=== PATIENT | female | born 1985 | race Caucasian/White ===

== ENCOUNTER 2018-02-26 00:50 | Outpatient (CLI) | payer OTHER ==
[~2018-02-26] VITALS: Ht 154.9 cm; Wt 80.0 kg
[~2018-02-26 00:50] MED LIST: PEDICHW50 PO; PRLSR20 PO
[2018-02-26 01:43] VITALS: Ht 154.9 cm; Wt 80.0 kg
== END 2018-02-26 01:43 | disposition home or self-care (01) ==
LOC: C.LD 00:50 → C.OPB 00:50
PROVIDERS: ATTEND Obstetrics & Gynecology
DX: O36.8190 Decreased fetal movements, unspecified trimester, not applicable or unspecified (principal); Z3A.00 Weeks of gestation of pregnancy not specified

== ENCOUNTER 2020-07-06 07:44 | Inpatient (IN) ==
--- OUTSIDE RECORDS SUMMARY | 2020-07-06 07:47 | External Medical Summary | Continuity of Care Document ---
:1985 Author Name Marlene Back Address Unavailable Unavailable , Care Team Providers Name Role Phone Sachin Patrick [email or web address] [place] Unavailable Unavailable Unavailable Unavailable Unavailable Problems Encounter for routine gynecological examination (V72.31) (Z0 1.419) Cholelithiasis (574.20) (K80.20) Elevated transaminase level (790.4) (R74.0) Sinus tachycardia (427.89) (R00.0) Palpitations (785.1) (R00.2) Allergies and Adverse Reactions No Known Drug Allergies (Allergy) Medications Flintstones Plus Iron Oral Tablet Chewable; CHEW AND SWALLOW 1 TABLET DAILY. Refills: 0 Procedures History of Oral Surgery Tooth Extraction Status: Completed History of Laparoscopic Cholecystectomy With Cholangiography Status: Completed History of ERCP With Endoscopic Sphincterotomy Status: Completed Immunizations Tdap (Adacel) On: 29-Oct-2014 11:47 Lot #: [id number], [employer] Family History Grandmother Family history of Thyroid Disorder (V18.19) Status: Active Father Family history of Diabetes Mellitus (V18.0) Status: Active Family history of Hypertension (V17.49) Status: Active Grandmother Family history of Diabetes Mellitus (V18.0) Status: Active Mother Family history of Hypertension (V17.49) Status: Active Unknown Family Member Family history of Hypertension (V17.49) Status: Active Comments: Family History Social History - Smoking Status Never smoked tobacco Plan of Treatment Planned Observations Planned Goals not documented Results No Known Results Results not documented
[2020-07-06] MEDS ORDERED: OXYTOCIN 30 UNITS/500 ML BAG IV PRN ×2 (08:46→21:45)
--- NOTE | 2020-07-06 08:53 | History & Physical Report ---
Date of Service July 06, 2020 Assessment & Plan (1) Elective induction of labor planned: 35 yo at 40.3 wks with GDMA1, diet controlled VSS Afebrile FHR reassuring GBS and COVID negative Plan to admit, monitor, cervical ripening, discussed PO Cytotec or Vaginal insert/ Cervidil, patient is okay with Cervidil All questions were answered (2) Gestational diabetes mellitus (GDM): History of Present Illness Primary Care Provider: NO PCP Patient is a 35 yo at 40.3 wks with GDMA1 admitted for IOL No complaints No ctxs/ LOF/VB +FM's GBS negative Covid negative Allergies Allergy/AdvReac Type Severity Reaction Status Date / Time No Known Allergies Allergy Verified 07/06/20 07:55 Home Medications Home Medications Medication Instructions Recorded Confirmed Type OMEPRAZOLE (PRILOSEC) 20 mg PO DAILY #0 cap 11/16/14 07/06/20 History vit-iron fum-folic ac 1 tab PO DAILY 07/06/20 07/06/20 History [ Vitamin] Patient History Medical History Eczema Normal vaginal delivery Surgical History History of ERCP Hx of cholecystectomy Social History Smoking Status: Never smoker Hx Alcohol Use: No Hx Substance Use: No Preferred Language: Uzbek Communication Ability: Effective 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 Beliefs That Will Affect Care: None marital status: Single Current Living Situation: Family and Significant Other Other Information That Helps Us Care for You: No Feels Safe at Home: Yes Safety Concerns: Feels Safe At This Time OB History 2 FT 's in 2015 and 2018 [employer] History No h/o STD's, no HSV Review of Systems All systems reviewed & are unremarkable except as noted in HPI & below Physical Exam Constitutional: WD/WN, vitals as above well developed and well nourished Confortable, NAD Genitourinary: normal external appearance OB Exam Abdomen: + vertex Manual OB Exam: + cervical dilation 1 cm, + cervical effacement 30% and + station high OB Exam Monitor Tracing: + external uterine monitor used and + category I Results & Data Vital Signs (Past 12 Hours) Vital Signs Temp Pulse Resp BP 07/06/20 08:07 36.7 C 18 07/06/20 07:54 92 H 124/66
[2020-07-06] MEDS ORDERED: DINOPROSTONE 10 MG INSERT PV ONE (09:00)
[2020-07-06 09:16] LABS: Hematocrit (blood only) 31.4 % (37-47); Hemoglobin 10.2 g/dL (12.0-16.0); Mean Corpuscular Hemoglobin 24.8 pg (25-34); Mean Corpuscular Volume 76.4 fL (80-100); Mean Platelet Volume 11.1 fL (7.4-10.4); Platelet Count 203 K/uL (130-400); RDW Coefficient of Variation 14.9 % (11.5-14.5); RDW Standard Deviation 42.1 fL (36.4-46.3); Red Blood Count 4.11 M/uL (4.2-5.4); White Blood Count 6.45 K/uL (4.8-10.8)
[2020-07-06 09:18] LABS: Mean Corpuscular Hgb Conc 32.5 g/dL (32-36)
[2020-07-06 09:32] LABS: Albumin Level 2.3 gm/dl (3.4-5.0); Calcium 8.7 mg/dl (8.5-10.1); Creatinine Clr Calc Pharmacy 136.3 ml/min; Est GFR (African American) 140.2; Potassium 3.6 mmol/L (3.5-5.1)
[2020-07-06 09:37] LABS: Albumin Globulin Ratio 0.6 (0.9-2); Bilirubin,Total 0.2 mg/dl (0.2-1); Globulin 3.6 gm/dl (2.5-4.0); Total Protein 5.9 gm/dl (6.4-8.2)
--- NOTE | 2020-07-06 20:51 | Obstetrical Progress Note ---
Date of Service July 06, 2020 Assessment & Plan Admission and Anticipated Discharge Date Admission Date: July 06, 2020 Subjective Patient is reevaluated She has been feeling mild and irregular ctxs Pain is 4/10 No LOF/VB +FM She is hungry and likes to eat FHR had been categ I [place]: ctxs q 2-5 minutes VE: 2/ 30% softer, -3, posterior, Cervidil was removed Plan to feed her and monitor and then continue with cervical ripening/ IOL Results & Data ([facility]) Vital Signs (Past 12 Hours) Vital Signs Temp Pulse Resp BP 07/06/20 19:05 36.5 C 60 18 126/71 07/06/20 16:02 59 L 110/63 07/06/20 16:01 36.4 C L 18 07/06/20 12:05 36.6 C 18 07/06/20 12:04 65 110/59 L
[2020-07-06] MEDS ORDERED: BUTORPHANOL TARTRATE 1 MG/ML VIAL IV PRN (23:45)
[2020-07-07] MEDS: miSOPROStoL 50 MCG TAB PO SCH ×4 (00:12→12:06)
[2020-07-07] MEDS: LACTATED RINGER'S 1,000 ML IV PRN ×3 (03:30→09:27)
[2020-07-07] MEDS ORDERED: OXYTOCIN 30 UNITS/500 ML BAG IV PRN ×2 (07:15→11:42)
[2020-07-07] MEDS ORDERED: BUPIVACAINE 0.25% 30 ML VIAL ONE (07:55)
[2020-07-07] MEDS ORDERED: ePHEDrine sulfate 50 MG/ML AMP ONE (07:55)
[2020-07-07] MEDS ORDERED: fentaNYL 2MCG/ML ROPIV 1.25MG/ML 100 ML BAG EPI ONE (07:55)
[2020-07-07] MEDS ORDERED: fentaNYL citrate 100 MCG/2 ML VIAL ONE (07:55)
[2020-07-07] MEDS ORDERED: NALOXONE HCL 1 MG in SODIUM CHLORIDE 0.9% 1000ML 1,000 ML IV PRN (08:15)
[2020-07-07] MEDS ORDERED: ONDANSETRON INJ 2 MG/ML 2 ML VIAL IV PRN (08:15)
[2020-07-07] MEDS ORDERED: fentaNYL 2MCG/ML ROPIV 1.25MG/ML 100 ML BAG EPI PRN (08:15)
[2020-07-07] MEDS ORDERED: NALOXONE HCL 0.4 MG/1 ML VIAL/CARP IV PRN (08:15)
[2020-07-07] MEDS ORDERED: DiphenhydrAMINE HCL 50 MG/ML VIAL IV PRN (08:15)
[2020-07-07] MEDS ORDERED: ePHEDrine sulfate 50 MG/ML AMP IV PRN (08:15)
--- NOTE | 2020-07-07 08:17 | Anesthesiology Consultation ---
Date of Service July 07, 2020 Covid 19 negative on 06/24/20. Assessment & Plan Chart Review Chart Review: Patient NOT seen in Pre Admission Testing and Acceptable Risk for Labor Epidural Consults Requested none ASA ASA2 Proposed Anesthesia Anesthesia Type: Labor Epidural and CSE Risk / Benefits Reviewed With: PT / POA / Parent / Guardian, Accepts Plan and Informed Consent Obtained History Height/Weight Height: 5 ft 1 in Weight: 83.461 kg Allergies Allergy/AdvReac Type Severity Reaction Status Date / Time No Known Allergies Allergy Verified 07/06/20 07:55 Medications Home Medications Medication Instructions Recorded Confirmed Last Taken OMEPRAZOLE (PRILOSEC) 20 mg PO DAILY #0 cap 11/16/14 07/06/20 07/06/20 vit-iron fum-folic ac 1 tab PO DAILY 07/06/20 07/06/20 07/05/20 [ Vitamin] Active Medications Generic Name Dose Route Start Last Admin Trade Name Freq PRN Reason Stop Dose Admin Butorphanol Tartrate 1 mg 07/06/20 23:45 07/07/20 03:31 Butorphanol Tartrate 1 Mg/Ml Vial IV 08/05/20 23:44 1 mg Q3HWA PRN Administration Pain Lactated Ringer's 1,000 mls @ 150 mls/hr 07/06/20 08:46 07/07/20 08:01 Lr IV 07/08/20 08:45 999 mls/hr .Q6H40M PRN Infusion L&D Protocol Protocol Oxytocin 30 units in 500 mls @ 2 mls/hr 07/06/20 21:45 07/07/20 07:30 Pitocin IV 07/08/20 21:44 0.12 units/hr .Q24H PRN 2 mls/hr Labor Induction/Augmentation Administration Protocol 0.12 UNITS/HR Misoprostol 50 mcg 07/07/20 00:00 07/07/20 05:35 Cytotec PO 08/06/20 00:00 Not Given Q4 CHRIS NPO Date Last Intake of Fluids: 07/07/20 Time Last Intake of Fluids: 07:30 Date Last Intake of Solids: 07/06/20 Time Last Intake of Solids: 19:00 Past Medical History Medical History Eczema Gestational diabetes mellitus (GDM) Normal vaginal delivery Exercise / Class Metabolic Activity II 4-5 Yardwork/Stairs/Walk up hill Past Surgical History Surgical History History of ERCP Hx of cholecystectomy Past Anesthesia History No Hx of Anesthesia Complications and No Family Hx of Anesthesia Complications History of PONV No Hx of PONV and No Hx of Motion Sickness Social History Smoking Status: Never smoker Hx Alcohol Use: No Hx Substance Use: No Review of Systems no chest pain or sob Physical Exam Vital Signs Last Vital Signs Temp 36.6 C 07/07/20 07:03 Pulse 78 07/07/20 08:13 Resp 20 07/07/20 07:03 BP 159/92 H 07/07/20 07:35 Pulse Ox 100 07/07/20 08:13 ENMT Mouth: no TMJ abnormality Thyromental Distance: > or= 3.5 Finger Breadths Mallampati Class: II Neck normal visual inspection Respiratory normal respiratory effort Auscultation: lungs clear to auscultation bilaterally Cardiovascular Rate/Rhythm: regular rate and regular rhythm Musculoskeletal Spine: normal cervical ROM Neurologic moves all extremities Psychiatric Orientation: alert and oriented x 3 Testing Laboratory Results 07/06/20 09:01 07/06/20 09:01
[2020-07-07] MEDS ORDERED: OXYCODONE/ACETAMINOPHEN 5mg/325mg TAB PO PRN (11:42)
[2020-07-07] MEDS ORDERED: bisacodyL 10 MG SUPP PR PRN (11:42)
[2020-07-07] MEDS ORDERED: ACETAMINOPHEN 325 MG TAB PO PRN (11:42)
[2020-07-07] MEDS ORDERED: ACETAMINOPHEN W/CODEINE #3 1 TAB PO PRN (11:42)
[2020-07-07] MEDS ORDERED: DIPHTHERIA/TETANUS/PERTUSSIS 0.5 ML SYR/VIAL IM ONE (11:42)
[2020-07-07] MEDS ORDERED: HYDROCORTISONE ACETATE 25 MG SUPP PR PRN (11:42)
[2020-07-07] MEDS ORDERED: SUPERCREAM 0.870% 15 GM JAR EXT PRN (11:42)
[2020-07-07] MEDS ORDERED: BENZOCAINE 20% AER SPR 82.5 GM CAN EXT PRN (11:42)
--- NOTE | 2020-07-07 12:08 | Anesthesia Procedure Note ---
Date of Service July 07, 2020 Anesthesia Post Epidural Note Vital Signs Vital Signs: Temp Pulse Resp BP Pulse Ox 36.7 C 75 20 116/59 L 92 07/07/20 11:00 07/07/20 11:58 07/07/20 11:00 07/07/20 11:58 07/07/20 11:26 Notes Mental Status: alert / awake / arousable and participated in evaluation Nausea / Vomiting: adequately controlled Pain: adequately controlled Airway Patency, RR, SpO2: stable & adequate BP & HR: stable & adequate Hydration State: stable & adequate Neuraxial Anesthesia: was administered and sensory block is resolving Anesthetic Complications: no major complications apparent and Pt Satisfied with anesthetic care Epidural: Removed without complications and With tip intact
--- NOTE | 2020-07-07 13:04 | Operative Report (OR) ---
DATE OF OPERATION: 07/07/2020 Mrs. Jones is a 4, para 3, blood type is O positive, group B strep negative, due date was 07/02/2020, was brought in for induction of labor due to post-dates. Was given Cervidil tape and then eventually was switched to IV Pitocin. Soon after she was started on IV Pitocin, she requested and received epidural from which she got good pain relief. Following this, she progressed rapidly, went to full dilatation. Membranes ruptured spontaneously. After the cervix was fully dilated, she pushed out a live female infant via direct occiput anterior position over an intact perineum. was suctioned through the mouth and the nose. Body was delivered without difficulty. Cord was allowed to pulse for a minute, then clamped and cut by the father. Cord blood was taken. With IV Pitocin running, the placenta was removed intact. Inspection of the perineum revealed a small superficial first degree laceration. This was repaired with a running 3-0 chromic. After delivery of the placenta, uterus contracted nicely. Hemostasis was excellent. Estimated blood loss was only 50 mL. Apgars were deferred to the nurses. I attest to the content of the Intraoperative Record and any orders documented therein. Any exception s are noted below.
[2020-07-07] MEDS: IBUPROFEN 600 MG TAB PO PRN (19:42)
[2020-07-07] MEDS: DOCUSATE SODIUM 100 MG CAP PO SCH (21:20)
[2020-07-08] MEDS: IBUPROFEN 600 MG TAB PO PRN ×3 (01:56→12:48)
[2020-07-08 05:40] LABS: Hematocrit (blood only) 30.1 % (37-47); Hemoglobin 9.9 g/dL (12.0-16.0); Mean Corpuscular Hemoglobin 25.2 pg (25-34); Mean Corpuscular Hgb Conc 32.9 g/dL (32-36); Mean Corpuscular Volume 76.6 fL (80-100); Mean Platelet Volume 11.6 fL (7.4-10.4); Platelet Count 170 K/uL (130-400); RDW Coefficient of Variation 15.1 % (11.5-14.5); Red Blood Count 3.93 M/uL (4.2-5.4); White Blood Count 7.94 K/uL (4.8-10.8)
[2020-07-08] MEDS ORDERED: PRENATAL VITAMIN 1 TAB PO SCH (08:00)
[2020-07-08] MEDS: DOCUSATE SODIUM 100 MG CAP PO SCH (08:26)
[2020-07-08] MEDS ORDERED: bisacodyL 5 MG TABEC PO SCH (20:00)
== END 2020-07-08 18:50 | disposition home or self-care (01) | DRG 807 ==
LOC: 4S1 07:44 → 4S2 07-07 15:46

== ENCOUNTER 2022-04-24 16:57 | Inpatient (IN) ==
[2022-04-24 18:53] LABS: Basophils # (auto) 0.02 K/uL (0-0.2); Basophils % (auto) 0.3 %; Eosinophils # (auto) 0.07 K/uL (0-0.5); Hematocrit (blood only) 30.9 % (37-47); Hemoglobin 9.7 g/dL (12.0-16.0); Immature Granulocytes # (auto) 0.02 K/uL (0.00-0.02); Immature Granulocytes % (auto) 0.3 %; Lymphocytes # (auto) 1.79 K/uL (1.2-3.4); Lymphocytes % (auto) 25.3 %; Mean Corpuscular Hemoglobin 23.3 pg (25-34); Mean Corpuscular Hgb Conc 31.4 g/dL (32-36); Mean Corpuscular Volume 74.3 fL (80-100); Mean Platelet Volume 12.2 fL (7.4-10.4); Monocytes # (auto) 0.56 K/uL (0.11-0.59); Monocytes % (auto) 7.9 %; Neutrophils # (auto) 4.61 K/uL (1.4-6.5); Neutrophils % (auto) 65.2 %; Platelet Count 211 K/uL (130-400); RDW Coefficient of Variation 16.1 % (11.5-14.5); RDW Standard Deviation 44.1 fL (36.4-46.3); Red Blood Count 4.16 M/uL (4.2-5.4); White Blood Count 7.07 K/uL (4.8-10.8)
[2022-04-24 19:14] LABS: Albumin Globulin Ratio 1.2 (0.9-2); Albumin Level 3.2 gm/dl (3.4-5.0); BUN Creatinine Ratio 27.1 (10-20); Bilirubin,Total 0.3 mg/dl (0.2-1.0); Calcium 8.6 mg/dl (8.5-10.1); Creatinine Clr Calc Pharmacy 167.6 ml/min; Est GFR (African American) 146.3 ml/min; Est GFR (Non-African American) 126.2 ml/min; Globulin 2.7 gm/dl (2.5-4.0); Potassium 3.4 mmol/L (3.5-5.1); Total Protein 5.9 gm/dl (6.0-8.3)
[2022-04-24 19:35] LABS: Appearance Urine Clear (Clear); Bacteria Urine Automated Negative (Negative); Bilirubin Urine Negative (Negative); Blood Urine Trace (Negative); Color Urine Yellow; Glucose Urine UA Negative (Negative); Ketones Urine Negative (Negative); Leukocyte Esterase Urine Negative (Negative); Nitrite Urine Negative (Negative); Protein Urine Negative (Negative); RBC Urine Automated 0-4 /hpf (0-4); Specific Gravity Urine 1.014 (1.000-1.030); Urobilinogen Urine Negative (Negative)
[2022-04-24 19:47] LABS: Creatinine Urine Random 69.9 mg/dl; Protein Creatinine Ratio Urine 0.2 (0-0.2); Total Protein Urine Random 12.4 mg/dl (0-11.9)
[2022-04-24] MEDS: ACETAMINOPHEN 325 MG TAB PO PRN (19:52)
[2022-04-24] MEDS ORDERED: OXYTOCIN 30 UNITS/500 ML BAG IV PRN ×3 (20:20→23:51)
--- NOTE | 2022-04-24 20:30 | History & Physical Report ---
Date of Service April 24, 2022 Assessment & Plan (1) Irregular uterine contractions: (2) Gestational [-induced] hypertension without significant proteinuria, complicating childbirth: Plan: 57-year-old -0-1-3 at 40 weeks and 2 days of gestation presenting to labor and delivery with contractions since yesterday, on latent phase of labor, to have elevated blood pressures with no proteinuria, meeting criteria for gestational hypertension, Asymptomatic with elevated blood pressures, no severe features, heart rate reassuring, Prolonged latent phase with cervical change and irregular contractions, GBS negative, Labs within normal limits, Plan to admit, augment with Pitocin per protocol, AROM for delivery continuously monitor (3) Obesity affecting in third trimester, antepartum: History of Present Illness Chief Complaint: Contractions Primary Care Provider: NO PCP Patient is a 37-year-old -0-1-3 at 40 weeks and 2 days of gestation who has been contractions since yesterday. She presented to labor and delivery yesterday afternoon and her cervix was unchanged at 2 cm dilation she was sent home. Her contractions became sporadic until 1 PM this afternoon when they become more painful and regular. She has been feeling them every 6 to 8 minutes. No leakage of fluid or vaginal bleeding. She reports good movements. Her has been complicated by, 1. Obesity during , 2. History of preeclampsia during first , 3. History of gestational diabetes during second , declined screening this time. During observation here her blood pressures were found to be elevated over 140/90 multiple times, her urine had no protein and her blood work including platelets, creatinine and liver enzymes were within normal limits. Her cervix changed to 4 cm dilatation 60%, -2 with bulging back. Because of those findings decision was made to admit her and augment with oxytocin and AROM for delivery. Patient is happy to hear that and agrees with plan. GBS is negative, She never had COVID, never had the vaccine either. Denies any symptoms of COVID, denies recent exposure. Allergies Allergy/AdvReac Type Severity Reaction Status Date / Time No Known Allergies Allergy Verified 04/24/22 17:15 Home Medications Medication Instructions Recorded Confirmed Type vitamins-iron fumarate 27 1 tab PO DAILY 07/06/20 04/24/22 History mg iron-folic acid 0.8 mg tablet ( Vitamin) omeprazole magnesium 20 mg 20 mg PO DAILY 04/24/22 04/24/22 History tablet,delayed release (Prilosec OTC) Patient History Medical History Eczema Gestational diabetes mellitus (GDM) last was diagnosed, with this just monitoring BSG, refused glucose testing. 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 Other Information That Helps Us Care for You: No Feels Safe at Home: Yes Assistive Devices: None OB History 3 spontaneous vaginal deliveries, 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 No history of STDs, no history of chlamydia, gonorrhea, herpes Review of Systems as per Subjective / HPI + headache(s) (With about half an hour ago, mild, no change in her vision.) Physical Exam Constitutional: well developed, well nourished and + obese Mild distress with contractions only, comfortable in between Gastrointestinal (Abdomen): normal bowel sounds, soft, nontender, no hepatosplenomegaly (Gravid) Genitourinary: normal external appearance OB Exam Abdomen: + vertex Manual OB Exam: + cervical dilation 4 cm, + cervical effacement 60% and + station -2 OB Exam Monitor Tracing: + external uterine monitor used and + category I Results & Data ([facility]) Vital Signs (Past 12 Hours) Vital Signs Temp Pulse Resp BP 04/24/22 20:10 64 143/82 H 04/24/22 19:55 60 155/78 H 04/24/22 19:41 61 155/76 H 04/24/22 19:27 36.7 C 18 04/24/22 19:26 59 L 159/70 H 04/24/22 19:10 67 150/94 H 04/24/22 18:54 60 150/91 H 04/24/22 18:39 76 145/90 H 04/24/22 18:24 68 145/87 H 04/24/22 18:09 82 142/81 H 04/24/22 17:54 72 142/81 H 04/24/22 17:38 78 155/86 H 04/24/22 17:37 83 164/98 H 04/24/22 17:09 36.9 C 80 18 140/81 04/24/22 17:08 36.9 C 80 18 140/81 Laboratory Results Lab Results 04/24/22 04/24/22 04/24/22 Range/Units 18:21 18:21 18:21 WBC 7.07 (4.8-10.8) K/uL RBC 4.16 L (4.2-5.4) M/uL Hgb 9.7 L (12.0-16.0) g/dL Hct 30.9 L (37-47) % MCV 74.3 L (80-100) fL MCH 23.3 L (25-34) pg MCHC 31.4 L (32-36) g/dL RDW Std Deviation 44.1 (36.4-46.3) fL RDW Coeff of Jeremy 16.1 H (11.5-14.5) % Plt Count 211 (130-400) K/uL MPV 12.2 H (7.4-10.4) fL Immature Gran % (Auto) 0.3 % Neut % (Auto) 65.2 % Lymph % (Auto) 25.3 % Hendricks % (Auto) 7.9 % Eos % (Auto) 1.0 % Baso % (Auto) 0.3 % Neut # (Auto) 4.61 (1.4-6.5) K/uL Lymph # (Auto) 1.79 (1.2-3.4) K/uL Hendricks # (Auto) 0.56 (0.11-0.59) K/uL Eos # (Auto) 0.07 (0-0.5) K/uL Baso # (Auto) 0.02 (0-0.2) K/uL Immature Gran # (Auto) 0.02 (0.00-0.02) K/uL Sodium 135 L (136-145) mmol/L Potassium 3.4 L (3.5-5.1) mmol/L Chloride 108 H (98-107) mmol/L Carbon Dioxide 20 L (21-32) mmol/L Anion Gap 7 (3-11) BUN 13 (6-23) mg/dl Creatinine 0.48 L (0.6-1.2) mg/dl Est Cr Clr Drug Dosing 167.6 ml/min Est GFR ( Amer) 146.3 ml/min Est GFR (Non-Af Amer) 126.2 ml/min BUN/Creatinine Ratio 27.1 H (10-20) Glucose 89 (70-99(Fasting)) mg/dl Calcium 8.6 (8.5-10.1) mg/dl Total Bilirubin 0.3 (0.2-1.0) mg/dl AST 9 L (13-39) U/L ALT 6 L (7-52) U/L Alkaline Phosphatase 95 (34-104) U/L Lactate Dehydrogenase 109 (86-244) U/L Total Protein 5.9 L (6.0-8.3) gm/dl Albumin 3.2 L (3.4-5.0) gm/dl Globulin 2.7 (2.5-4.0) gm/dl Albumin/Globulin Ratio 1.2 (0.9-2) Urine Color Urine Appearance (Clear) Urine pH (4.5-7.5) Ur Specific [place] (1.000-1.030) Urine Protein (Negative) Urine Glucose (UA) (Negative) Urine Ketones (Negative) Urine Blood (Negative) Urine Nitrite (Negative) Urine Bilirubin (Negative) Urine Urobilinogen (Negative) Ur Leukocyte Esterase (Negative) Urine WBC (Auto) (0-5) /hpf Urine RBC (Auto) (0-4) /hpf U Hyaline Cast (Auto) (0-5) /lpf U Epithel Cells (Auto) (0-5) /lpf Urine Bacteria (Auto) (Negative) Ur Random Creatinine mg/dl U Random Total Protein (0-11.9) mg/dl Protein/Creatinin Ratio (0-0.2) 04/24/22 04/24/22 Range/Units 19:26 19:29 WBC (4.8-10.8) K/uL RBC (4.2-5.4) M/uL Hgb (12.0-16.0) g/dL Hct (37-47) % MCV (80-100) fL MCH (25-34) pg MCHC (32-36) g/dL RDW Std Deviation (36.4-46.3) fL RDW Coeff of Jeremy (11.5-14.5) % Plt Count (130-400) K/uL MPV (7.4-10.4) fL Immature Gran % (Auto) % Neut % (Auto) % Lymph % (Auto) % Hendricks % (Auto) % Eos % (Auto) % Baso % (Auto) % Neut # (Auto) (1.4-6.5) K/uL Lymph # (Auto) (1.2-3.4) K/uL Hendricks # (Auto) (0.11-0.59) K/uL Eos # (Auto) (0-0.5) K/uL Baso # (Auto) (0-0.2) K/uL Immature Gran # (Auto) (0.00-0.02) K/uL Sodium (136-145) mmol/L Potassium (3.5-5.1) mmol/L Chloride (98-107) mmol/L Carbon Dioxide (21-32) mmol/L Anion Gap (3-11) BUN (6-23) mg/dl Creatinine (0.6-1.2) mg/dl Est Cr Clr Drug Dosing ml/min Est GFR ( Amer) ml/min Est GFR (Non-Af Amer) ml/min BUN/Creatinine Ratio (10-20) Glucose (70-99(Fasting)) mg/dl Calcium (8.5-10.1) mg/dl Total Bilirubin (0.2-1.0) mg/dl AST (13-39) U/L ALT (7-52) U/L Alkaline Phosphatase (34-104) U/L Lactate Dehydrogenase (86-244) U/L Total Protein (6.0-8.3) gm/dl Albumin (3.4-5.0) gm/dl Globulin (2.5-4.0) gm/dl Albumin/Globulin Ratio (0.9-2) Urine Color Yellow Urine Appearance Clear (Clear) Urine pH 6.0 (4.5-7.5) Ur Specific [place] 1.014 (1.000-1.030) Urine Protein Negative (Negative) Urine Glucose (UA) Negative (Negative) Urine Ketones Negative (Negative) Urine Blood Trace H (Negative) Urine Nitrite Negative (Negative) Urine Bilirubin Negative (Negative) Urine Urobilinogen Negative (Negative) Ur Leukocyte Esterase Negative (Negative) Urine WBC (Auto) 1-5 (0-5) /hpf Urine RBC (Auto) 0-4 (0-4) /hpf U Hyaline Cast (Auto) 1-5 (0-5) /lpf U Epithel Cells (Auto) 10-20 H (0-5) /lpf Urine Bacteria (Auto) Negative (Negative) Ur Random Creatinine 69.9 mg/dl U Random Total Protein 12.4 H (0-11.9) mg/dl Protein/Creatinin Ratio 0.2 (0-0.2)
[2022-04-24] MEDS: LACTATED RINGER'S 1,000 ML IV PRN ×2 (21:20→22:29)
[2022-04-24] MEDS ORDERED: ePHEDrine sulfate 50 MG/ML AMP ONE (21:40)
[2022-04-24] MEDS ORDERED: BUPIVACAINE 0.25% 30 ML VIAL ONE (21:41)
[2022-04-24] MEDS ORDERED: SODIUM CHLORIDE 0.9% INJ 10 ML VIAL ONE (21:41)
[2022-04-24] MEDS ORDERED: fentaNYL 2MCG/ML ROPIVACAINE 1.25MG/ML 100 ML BAG EPI ONE (21:41)
[2022-04-24] MEDS ORDERED: fentaNYL citrate 100 MCG/2 ML VIAL ONE (21:41)
[2022-04-24] MEDS ORDERED: NALOXONE HCL 0.4 MG/1 ML VIAL/CARP IV PRN (22:42)
[2022-04-24] MEDS ORDERED: ONDANSETRON INJ 2 MG/ML 2 ML VIAL IV PRN (22:42)
[2022-04-24] MEDS ORDERED: ePHEDrine sulfate 50 MG/ML AMP IV PRN (22:42)
[2022-04-24] MEDS ORDERED: NALOXONE HCL 1 MG in SODIUM CHLORIDE 0.9% 1000ML 1,000 ML IV PRN (22:42)
[2022-04-24] MEDS ORDERED: PROMETHAZINE HCL 6.25 MG in SODIUM CHLORIDE 0.9% 50 ML IV PRN (22:42)
[2022-04-24] MEDS ORDERED: NALBUPHINE HCL INJ 10 MG/ML AMP IV PRN (22:42)
[2022-04-24] MEDS ORDERED: fentaNYL 2MCG/ML ROPIVACAINE 1.25MG/ML 100 ML BAG EPI PRN (22:42)
[2022-04-24] MEDS ORDERED: diphenhydrAMINE 50 MG/ML VIAL IV PRN (22:42)
--- NOTE | 2022-04-24 22:42 | Anesthesiology Consultation ---
Date of Service April 24, 2022 Assessment & Plan Chart Review Chart Review: Patient NOT seen in Pre Admission Testing and Acceptable Risk for Labor Epidural Consults Requested none ASA ASA2 Proposed Anesthesia Anesthesia Type: Labor Epidural Risk / Benefits Reviewed With: PT / POA / Parent / Guardian, Accepts Plan and Informed Consent Obtained History Height/Weight Height: 5 ft 1 in Weight: 92.079 kg Allergies Allergy/AdvReac Type Severity Reaction Status Date / Time No Known Allergies Allergy Verified 04/24/22 17:15 Medications Home Medications Medication Instructions Recorded Confirmed Last Taken vitamins-iron fumarate 27 1 tab PO DAILY 07/06/20 04/24/22 04/20/22 mg iron-folic acid 0.8 mg tablet ( Vitamin) omeprazole magnesium 20 mg 20 mg PO DAILY 04/24/22 04/24/22 04/23/22 08:00 tablet,delayed release (Prilosec OTC) Active Medications Generic Name Dose Route Start Last Admin Trade Name Freq PRN Reason Stop Dose Admin Acetaminophen 650 mg 04/24/22 18:08 04/24/22 19:52 Acetaminophen 325 Mg Tab PO 05/24/22 18:07 650 mg Q4H PRN Administration Pain or Fever Lactated Ringer's 1,000 mls @ 150 mls/hr 04/24/22 20:20 04/24/22 22:29 Lr IV 04/26/22 20:19 150 mls/hr .Q6H40M PRN Administration L&D Protocol Protocol Oxytocin 30 units in 500 mls @ 2 mls/hr 04/24/22 20:22 04/24/22 21:25 Pitocin IV 04/26/22 20:21 0.12 units/hr .Q24H PRN 2 mls/hr Labor Induction/Augmentation Administration Protocol 0.12 UNITS/HR Past Medical History Medical History Eczema Gestational diabetes mellitus (GDM) last was diagnosed, with this just monitoring BSG, refused glucose testing. Normal vaginal delivery Exercise / Class Metabolic Activity II 4-5 Yardwork/Stairs/Walk up hill Past Surgical History Surgical History History of ERCP Hx of cholecystectomy 2014 Past Anesthesia History No Hx of Anesthesia Complications and No Family Hx of Anesthesia Complications History of PONV No Hx of PONV and No Hx of Motion Sickness Social History Smoking Status: Never smoker Hx Alcohol Use: No Hx Substance Use: No substance use type: does not use Physical Exam Vital Signs Last Vital Signs Temp 36.7 C 04/24/22 19:27 Pulse 89 04/24/22 22:40 Resp 18 04/24/22 19:27 BP 169/74 H 04/24/22 22:39 Pulse Ox 97 04/24/22 22:35 ENMT Mouth: no dentition abnormality Thyromental Distance: > or= 3.5 Finger Breadths Mallampati Class: II Neck normal visual inspection Respiratory normal respiratory effort Auscultation: lungs clear to auscultation bilaterally Cardiovascular Rate/Rhythm: regular rate and regular rhythm Psychiatric Orientation: alert Testing Laboratory Results 04/24/22 18:21 04/24/22 18:21 Urine Color Yellow 04/24/22 19:29 Urine Appearance Clear (Clear) 04/24/22 19:29 Urine pH 6.0 (4.5-7.5) 04/24/22 19:29 Ur Specific [place] 1.014 (1.000-1.030) 04/24/22 19:29 Urine Protein Negative (Negative) 04/24/22 19:29 Urine Glucose (UA) Negative (Negative) 04/24/22 19:29 Urine Ketones Negative (Negative) 04/24/22 19:29 Urine Nitrite Negative (Negative) 04/24/22 19:29 Ur Leukocyte Esterase Negative (Negative) 04/24/22 19:29 Urine WBC (Auto) 1-5 /hpf (0-5) 04/24/22 19:29 Urine RBC (Auto) 0-4 /hpf (0-4) 04/24/22 19:29 U Hyaline Cast (Auto) 1-5 /lpf (0-5) 04/24/22 19:29 U Epithel Cells (Auto) 10-20 /lpf (0-5) H 04/24/22 19:29 Urine Bacteria (Auto) Negative (Negative) 04/24/22 19:29
--- NOTE | 2022-04-24 23:12 | Obstetrical Progress Note ---
Date of Service April 24, 2022 Assessment & Plan Admission and Anticipated Discharge Date Admission Date: April 24, 2022 Subjective Patient is reevaluated. She has received epidural for pain and now feels pressure. Cervix is 10 cm dilated, 100% effaced and head is at +1 station, no membranes felt, anterior fontanelle is at 2 o'clock position. heart rate category 1, Maternal blood pressures are elevated, no headaches, change in her vision, nausea vomiting, chest pain shortness of breath. Plan to start p.o. labetalol and left lateral position change for internal rotation and anticipate . Results & Data ([facility]) Vital Signs (Past 12 Hours) Vital Signs Temp Pulse Resp BP Pulse Ox 04/24/22 23:09 77 94 04/24/22 23:05 84 97 04/24/22 23:00 82 95 04/24/22 22:59 65 157/84 H 04/24/22 22:55 73 95 04/24/22 22:50 64 96 04/24/22 22:45 81 96 04/24/22 22:42 64 159/89 H 04/24/22 22:40 89 96 04/24/22 22:39 74 169/74 H 04/24/22 22:35 75 175/87 H 97 04/24/22 22:32 72 158/85 H 04/24/22 22:30 74 18 100 04/24/22 22:25 81 100 04/24/22 22:20 76 99 04/24/22 22:15 88 100 04/24/22 22:10 66 98 04/24/22 22:05 86 100 04/24/22 22:00 103 H 100 04/24/22 21:58 67 183/91 H 04/24/22 21:55 69 100 04/24/22 21:46 88 188/115 H 04/24/22 20:10 64 143/82 H 04/24/22 19:55 60 155/78 H 04/24/22 19:41 61 155/76 H 04/24/22 19:27 36.7 C 18 04/24/22 19:26 59 L 159/70 H 04/24/22 19:10 67 150/94 H 04/24/22 18:54 60 150/91 H 04/24/22 18:39 76 145/90 H 04/24/22 18:24 68 145/87 H 04/24/22 18:09 82 142/81 H 04/24/22 17:54 72 142/81 H 04/24/22 17:38 78 155/86 H 04/24/22 17:37 83 164/98 H 04/24/22 17:09 36.9 C 80 18 140/81 04/24/22 17:08 36.9 C 80 18 140/81
[2022-04-24] MEDS: LABETALOL HCL 100 MG TAB PO SCH (23:19)
[2022-04-24] MEDS ORDERED: BENZOCAINE 20% AER SPR 82.5 GM CAN EXT PRN (23:51)
[2022-04-24] MEDS ORDERED: MEASLES, MUMPS & RUBELLA VIRUS VIAL SQ ONE (23:51)
[2022-04-24] MEDS ORDERED: DIPHTHERIA/TETANUS/PERTUSSIS 0.5 ML SYR/VIAL IM ONE (23:51)
[2022-04-24] MEDS ORDERED: HYDROCORTISONE ACETATE 25 MG SUPP PR PRN (23:51)
[2022-04-24] MEDS ORDERED: bisacodyL 10 MG SUPP PR PRN (23:51)
--- NOTE | 2022-04-24 23:55 | Delivery Summary ---
Vaginal Delivery Summary Date of Service April 24, 2022 Vaginal Delivery Summary Patient was found to be fluid dilated and desire to push she pushed only once and delivered to head without difficulty there was a nuchal cord around the neck x2, both were reduced difficulty and the shoulders were delivered with minimal traction. Baby was handed off to the mother, the mouth and nose were suctioned and the cord was clamped x2 and cut at 1 minute delay. The baby was vigorously moving and crying. The vagina and perineum were checked for lacerations, there were intact, no lacerations were found. Then the placenta was found to be in the vagina, delivered spontaneously as intact and complete. The uterus was explored and found to be empty, the lower segment was cleared from clots. The fundus was firm and EBL was 100 mL. Mom and baby tolerated procedure well. Sponge and instrument count was correct x2. Baby was a viable male , Apgars were 8/10 and the weight is pending. No complications happened and I was present during whole procedure.
[2022-04-25] MEDS: ACETAMINOPHEN 325 MG TAB PO PRN ×4 (03:49→23:43)
[2022-04-25] MEDS ORDERED: LABETALOL HCL 100 MG TAB PO ONE (04:05)
[2022-04-25 06:27] LABS: Hematocrit (blood only) 31.6 % (37-47); Mean Corpuscular Hemoglobin 23.3 pg (25-34); Mean Corpuscular Hgb Conc 31.6 g/dL (32-36); Mean Corpuscular Volume 73.7 fL (80-100); Platelet Count 196 K/uL (130-400); RDW Coefficient of Variation 16.5 % (11.5-14.5); RDW Standard Deviation 44.4 fL (36.4-46.3); Red Blood Count 4.29 M/uL (4.2-5.4); White Blood Count 13.48 K/uL (4.8-10.8)
[2022-04-25] MEDS: IBUPROFEN 600 MG TAB PO PRN ×2 (07:58→15:53)
[2022-04-25] MEDS: FERROUS SULFATE 325 MG TAB PO SCH (07:58)
[2022-04-25] MEDS: DOCUSATE SODIUM 100 MG CAP PO SCH ×2 (07:58→21:31)
[2022-04-25] MEDS: LABETALOL HCL 100 MG TAB PO SCH ×2 (08:01→21:31)
[2022-04-25] MEDS: PRENATAL VITAMIN 1 TAB PO SCH (08:01)
--- NOTE | 2022-04-25 09:25 | Anesthesia Procedure Note ---
Date of Service April 25, 2022 Anesthesia Post Epidural Note Vital Signs Vital Signs: Temp Pulse Resp BP Pulse Ox 36.6 C 80 20 124/81 98 04/25/22 07:15 04/25/22 08:50 04/25/22 07:15 04/25/22 08:50 04/25/22 07:15 Pain Intensity Bilateral Lower Back: Pain Intensity: 8 Bilateral Episiotomy/Laceration: Pain Intensity: 2 Abdomen: Pain Intensity: 7 Notes Mental Status: alert / awake / arousable Nausea / Vomiting: adequately controlled Pain: adequately controlled Airway Patency, RR, SpO2: stable & adequate BP & HR: stable & adequate Hydration State: stable & adequate Neuraxial Anesthesia: was administered and sensory block is resolving Anesthetic Complications: no major complications apparent and Pt Satisfied with anesthetic care Epidural: Removed without complications and With tip intact
--- NOTE | 2022-04-25 09:34 | Obstetrical Progress Note ---
Date of Service April 25, 2022 Assessment & Plan Admission and Anticipated Discharge Date Admission Date: April 24, 2022 Subjective Patient is seen and examined. She feels well, no complaints. Ambulating without dizziness Voiding without difficulty Tolerating regular diet with out N&V Bleeding is minimal No POND/ Change in vision/ epig or RUQ pain/ fever/ chills/ CP/ SOB/ N&V/ Leg pain Breast feeding without problems Vital Signs Temp Pulse Pulse Resp BP BP Pulse Ox 04/25/22 08:50 80 124/81 04/25/22 08:10 153/89 H 04/25/22 07:15 36.6 C 57 L 20 164/91 H 98 04/25/22 05:06 146/87 H 04/25/22 03:47 160/89 H 04/25/22 02:23 36.8 C 79 16 157/97 H 97 04/25/22 02:07 96 H 123/60 04/25/22 02:00 18 04/25/22 01:52 78 124/58 L 04/25/22 01:37 78 130/60 04/25/22 01:22 75 134/59 L 04/25/22 01:07 71 150/66 H 04/25/22 00:53 141/67 H 04/25/22 00:37 214 H 149/90 H 04/25/22 00:30 18 04/25/22 00:21 77 130/76 04/25/22 00:05 75 120/70 04/25/22 00:00 36.7 C 18 04/24/22 23:51 88 114/69 04/24/22 23:44 75 94 04/24/22 23:43 62 141/78 H 04/24/22 23:40 80 94 04/24/22 23:38 100 H 89 L 04/24/22 23:35 97 H 96 04/24/22 23:32 84 92 04/24/22 23:30 66 95 04/24/22 23:28 63 150/75 H 04/24/22 23:26 64 94 04/24/22 23:25 65 94 04/24/22 23:20 74 95 04/24/22 23:15 72 95 04/24/22 23:14 73 172/74 H 94 04/24/22 23:10 68 94 04/24/22 23:09 77 94 05/30/22 23:05 84 97 04/24/22 23:00 36.5 C 82 18 95 04/24/22 22:59 65 157/84 H 04/24/22 22:55 73 95 04/24/22 22:50 64 96 04/24/22 22:45 81 96 04/24/22 22:42 64 159/89 H 04/24/22 22:40 89 96 04/24/22 22:39 74 169/74 H 04/24/22 22:35 75 175/87 H 97 04/24/22 22:32 72 158/85 H 04/24/22 22:30 74 18 100 04/24/22 22:25 81 100 04/24/22 22:20 76 99 04/24/22 22:15 88 100 04/24/22 22:10 66 98 04/24/22 22:05 86 100 04/24/22 22:00 103 H 100 04/24/22 21:58 67 183/91 H 04/24/22 21:55 69 100 04/24/22 21:46 88 188/115 H Lab Results 04/24/22 04/24/22 04/24/22 Range/Units 18:21 18:21 18:21 WBC 7.07 (4.8-10.8) K/uL RBC 4.16 L (4.2-5.4) M/uL Hgb 9.7 L (12.0-16.0) g/dL Hct 30.9 L (37-47) % MCV 74.3 L (80-100) fL MCH 23.3 L (25-34) pg MCHC 31.4 L (32-36) g/dL RDW Std Deviation 44.1 (36.4-46.3) fL RDW Coeff of Jeremy 16.1 H (11.5-14.5) % Plt Count 211 (130-400) K/uL MPV 12.2 H (7.4-10.4) fL Immature Gran % (Auto) 0.3 % Neut % (Auto) 65.2 % Lymph % (Auto) 25.3 % [place] % (Auto) 7.9 % Eos % (Auto) 1.0 % Baso % (Auto) 0.3 % Neut # (Auto) 4.61 (1.4-6.5) K/uL Lymph # (Auto) 1.79 (1.2-3.4) K/uL [place] # (Auto) 0.56 (0.11-0.59) K/uL Eos # (Auto) 0.07 (0-0.5) K/uL Baso # (Auto) 0.02 (0-0.2) K/uL Immature Gran # (Auto) 0.02 (0.00-0.02) K/uL Sodium 135 L (136-145) mmol/L Potassium 3.4 L (3.5-5.1) mmol/L Chloride 108 H (98-107) mmol/L Carbon Dioxide 20 L (21-32) mmol/L Anion Gap 7 (3-11) BUN 13 (6-23) mg/dl Creatinine 0.48 L (0.6-1.2) mg/dl Est Cr Clr Drug Dosing 167.6 ml/min Est GFR ( Amer) 146.3 ml/min Est GFR (Non-Af Amer) 126.2 ml/min BUN/Creatinine Ratio 27.1 H (10-20) Glucose 89 (70-99(Fasting)) mg/dl Calcium 8.6 (8.5-10.1) mg/dl Total Bilirubin 0.3 (0.2-1.0) mg/dl AST 9 L (13-39) U/L ALT 6 L (7-52) U/L Alkaline Phosphatase 95 (34-104) U/L Lactate Dehydrogenase 109 (86-244) U/L Total Protein 5.9 L (6.0-8.3) gm/dl Albumin 3.2 L (3.4-5.0) gm/dl Globulin 2.7 (2.5-4.0) gm/dl Albumin/Globulin Ratio 1.2 (0.9-2) Urine Color Urine Appearance (Clear) Urine pH (4.5-7.5) Ur Specific [place] (1.000-1.030) Urine Protein (Negative) Urine Glucose (UA) (Negative) Urine Ketones (Negative) Urine Blood (Negative) Urine Nitrite (Negative) Urine Bilirubin (Negative) Urine Urobilinogen (Negative) Ur Leukocyte Esterase (Negative) Urine WBC (Auto) (0-5) /hpf Urine RBC (Auto) (0-4) /hpf U Hyaline Cast (Auto) (0-5) /lpf U Epithel Cells (Auto) (0-5) /lpf Urine Bacteria (Auto) (Negative) Ur Random Creatinine mg/dl U Random Total Protein (0-11.9) mg/dl Protein/Creatinin Ratio (0-0.2) SARS-CoV-2, RNA, NAAT (NEGATIVE) 04/24/22 04/24/22 04/24/22 Range/Units 19:26 19:29 20:37 WBC (4.8-10.8) K/uL RBC (4.2-5.4) M/uL Hgb (12.0-16.0) g/dL Hct (37-47) % MCV (80-100) fL MCH (25-34) pg MCHC (32-36) g/dL RDW Std Deviation (36.4-46.3) fL RDW Coeff of Jeremy (11.5-14.5) % Plt Count (130-400) K/uL MPV (7.4-10.4) fL Immature Gran % (Auto) % Neut % (Auto) % Lymph % (Auto) % [place] % (Auto) % Eos % (Auto) % Baso % (Auto) % Neut # (Auto) (1.4-6.5) K/uL Lymph # (Auto) (1.2-3.4) K/uL [place] # (Auto) (0.11-0.59) K/uL Eos # (Auto) (0-0.5) K/uL Baso # (Auto) (0-0.2) K/uL Immature Gran # (Auto) (0.00-0.02) K/uL Sodium (136-145) mmol/L Potassium (3.5-5.1) mmol/L Chloride (98-107) mmol/L Carbon Dioxide (21-32) mmol/L Anion Gap (3-11) BUN (6-23) mg/dl Creatinine (0.6-1.2) mg/dl Est Cr Clr Drug Dosing ml/min Est GFR ( Amer) ml/min Est GFR (Non-Af Amer) ml/min BUN/Creatinine Ratio (10-20) Glucose (70-99(Fasting)) mg/dl Calcium (8.5-10.1) mg/dl Total Bilirubin (0.2-1.0) mg/dl AST (13-39) U/L ALT (7-52) U/L Alkaline Phosphatase (34-104) U/L Lactate Dehydrogenase (86-244) U/L Total Protein (6.0-8.3) gm/dl Albumin (3.4-5.0) gm/dl Globulin (2.5-4.0) gm/dl Albumin/Globulin Ratio (0.9-2) Urine Color Yellow Urine Appearance Clear (Clear) Urine pH 6.0 (4.5-7.5) Ur Specific [place] 1.014 (1.000-1.030) Urine Protein Negative (Negative) Urine Glucose (UA) Negative (Negative) Urine Ketones Negative (Negative) Urine Blood Trace H (Negative) Urine Nitrite Negative (Negative) Urine Bilirubin Negative (Negative) Urine Urobilinogen Negative (Negative) Ur Leukocyte Esterase Negative (Negative) Urine WBC (Auto) 1-5 (0-5) /hpf Urine RBC (Auto) 0-4 (0-4) /hpf U Hyaline Cast (Auto) 1-5 (0-5) /lpf U Epithel Cells (Auto) 10-20 H (0-5) /lpf Urine Bacteria (Auto) Negative (Negative) Ur Random Creatinine 69.9 mg/dl U Random Total Protein 12.4 H (0-11.9) mg/dl Protein/Creatinin Ratio 0.2 (0-0.2) SARS-CoV-2, RNA, NAAT NEGATIVE (NEGATIVE) 04/25/22 Range/Units 06:08 WBC 13.48 H (4.8-10.8) K/uL RBC 4.29 (4.2-5.4) M/uL Hgb 10.0 L (12.0-16.0) g/dL Hct 31.6 L (37-47) % MCV 73.7 L (80-100) fL MCH 23.3 L (25-34) pg MCHC 31.6 L (32-36) g/dL RDW Std Deviation 44.4 (36.4-46.3) fL RDW Coeff of Jeremy 16.5 H (11.5-14.5) % Plt Count 196 (130-400) K/uL MPV 11.0 H (7.4-10.4) fL Immature Gran % (Auto) % Neut % (Auto) % Lymph % (Auto) % [place] % (Auto) % Eos % (Auto) % Baso % (Auto) % Neut # (Auto) (1.4-6.5) K/uL Lymph # (Auto) (1.2-3.4) K/uL [place] # (Auto) (0.11-0.59) K/uL Eos # (Auto) (0-0.5) K/uL Baso # (Auto) (0-0.2) K/uL Immature Gran # (Auto) (0.00-0.02) K/uL Sodium (136-145) mmol/L Potassium (3.5-5.1) mmol/L Chloride (98-107) mmol/L Carbon Dioxide (21-32) mmol/L Anion Gap (3-11) BUN (6-23) mg/dl Creatinine (0.6-1.2) mg/dl Est Cr Clr Drug Dosing ml/min Est GFR ( Amer) ml/min Est GFR (Non-Af Amer) ml/min BUN/Creatinine Ratio (10-20) Glucose (70-99(Fasting)) mg/dl Calcium (8.5-10.1) mg/dl Total Bilirubin (0.2-1.0) mg/dl AST (13-39) U/L ALT (7-52) U/L Alkaline Phosphatase (34-104) U/L Lactate Dehydrogenase (86-244) U/L Total Protein (6.0-8.3) gm/dl Albumin (3.4-5.0) gm/dl Globulin (2.5-4.0) gm/dl Albumin/Globulin Ratio (0.9-2) Urine Color Urine Appearance (Clear) Urine pH (4.5-7.5) Ur Specific [place] (1.000-1.030) Urine Protein (Negative) Urine Glucose (UA) (Negative) Urine Ketones (Negative) Urine Blood (Negative) Urine Nitrite (Negative) Urine Bilirubin (Negative) Urine Urobilinogen (Negative) Ur Leukocyte Esterase (Negative) Urine WBC (Auto) (0-5) /hpf Urine RBC (Auto) (0-4) /hpf U Hyaline Cast (Auto) (0-5) /lpf U Epithel Cells (Auto) (0-5) /lpf Urine Bacteria (Auto) (Negative) Ur Random Creatinine mg/dl U Random Total Protein (0-11.9) mg/dl Protein/Creatinin Ratio (0-0.2) SARS-CoV-2, RNA, NAAT (NEGATIVE) PE: General: Alert, orientedx3, NAD Abd: soft, NT, fundus firm, below Umbilicus Perineum intact, Lochia rubra minimal Ext; NT, no edema AP: 37 yo s/p , ppd# 1 VSS Afebrile doing well Gestational HT, under control with Labetalol Continue routine care All questions were answered D/C home tomorrow Results & Data ([facility]) Vital Signs (Past 12 Hours) Vital Signs Temp Pulse Pulse Resp BP BP Pulse Ox 04/25/22 08:50 80 124/81 04/25/22 08:10 153/89 H 04/25/22 07:15 36.6 C 57 L 20 164/91 H 98 04/25/22 05:06 146/87 H 04/25/22 03:47 160/89 H 04/25/22 02:23 36.8 C 79 16 157/97 H 97 04/25/22 02:07 96 H 123/60 04/25/22 02:00 18 04/25/22 01:52 78 124/58 L 04/25/22 01:37 78 130/60 04/25/22 01:22 75 134/59 L 04/25/22 01:07 71 150/66 H 04/25/22 00:53 141/67 H 04/25/22 00:37 214 H 149/90 H 04/25/22 00:30 18 04/25/22 00:21 77 130/76 04/25/22 00:05 75 120/70 04/25/22 00:00 36.7 C 18 04/24/22 23:51 88 114/69 04/24/22 23:44 75 94 04/24/22 23:43 62 141/78 H 04/24/22 23:40 80 94 04/24/22 23:38 100 H 89 L 04/24/22 23:35 97 H 96 04/24/22 23:32 84 92 04/24/22 23:30 66 95 04/24/22 23:28 63 150/75 H 04/24/22 23:26 64 94 04/24/22 23:25 65 94 04/24/22 23:20 74 95 04/24/22 23:15 72 95 04/24/22 23:14 73 172/74 H 94 04/24/22 23:10 68 94 04/24/22 23:09 77 94 04/24/22 23:05 84 97 04/24/22 23:00 36.5 C 82 18 95 04/24/22 22:59 65 157/84 H 04/24/22 22:55 73 95 04/24/22 22:50 64 96 04/24/22 22:45 81 96 04/24/22 22:42 64 159/89 H 04/24/22 22:40 89 96 04/24/22 22:39 74 169/74 H 04/24/22 22:35 75 175/87 H 97 04/24/22 22:32 72 158/85 H 04/24/22 22:30 74 18 100 04/24/22 22:25 81 100 04/24/22 22:20 76 99 04/24/22 22:15 88 100 04/24/22 22:10 66 98 04/24/22 22:05 86 100 04/24/22 22:00 103 H 100 04/24/22 21:58 67 183/91 H 04/24/22 21:55 69 100 04/24/22 21:46 88 188/115 H
[2022-04-25] MEDS ORDERED: bisacodyL 5 MG TABEC PO SCH (20:00)
[2022-04-26 06:51] LABS: Hematocrit (blood only) 31.4 % (37-47); Hemoglobin 9.8 g/dL (12.0-16.0)
[2022-04-26] MEDS: PRENATAL VITAMIN 1 TAB PO SCH (08:38)
[2022-04-26] MEDS: LABETALOL HCL 100 MG TAB PO SCH (08:38)
[2022-04-26] MEDS: DOCUSATE SODIUM 100 MG CAP PO SCH (08:39)
[2022-04-26] MEDS: FERROUS SULFATE 325 MG TAB PO SCH (08:39)
[2022-04-26] MEDS: ACETAMINOPHEN 325 MG TAB PO PRN (08:39)
--- NOTE | 2022-04-26 11:26 | Obstetrical Progress Note ---
Date of Service April 26, 2022 Subjective Ambulation: ambulating normally Voiding: no voiding problems Passing Gas:: Yes Diet Tolerance:: regular diet Lochia:: Small Feeding Type:: breast feeding Current Pain Level(1-10): 0 doing well. plans for d/c Physical Exam Constitutional WD/WN, vitals as above Gastrointestinal (Abdomen) Inspection/Auscultation: abdomen normal to inspection abdomen soft and non-tender. fundus firm below U Skin no rashes, warm and dry Neurologic patellar DTR's 2+ bilat, sensation intact Results & Data ([facility]) Vital Signs (Past 12 Hours) Vital Signs Temp Pulse Resp BP Pulse Ox 04/26/22 11:22 36.5 C 72 18 129/83 98 04/26/22 09:19 129/83 04/26/22 07:20 36.5 C 72 18 151/78 H 98 04/25/22 23:43 36.4 C L 64 16 133/81 98 Laboratory Results 04/24/22 04/24/22 04/24/22 18:21 18:21 18:21 WBC 7.07 RBC 4.16 L Hgb 9.7 L Hct 30.9 L MCV 74.3 L MCH 23.3 L MCHC 31.4 L RDW Std Deviation 44.1 RDW Coeff of Jeremy 16.1 H Plt Count 211 MPV 12.2 H Immature Gran % (Auto) 0.3 Neut % (Auto) 65.2 Lymph % (Auto) 25.3 [place] % (Auto) 7.9 Eos % (Auto) 1.0 Baso % (Auto) 0.3 Neut # (Auto) 4.61 Lymph # (Auto) 1.79 [place] # (Auto) 0.56 Eos # (Auto) 0.07 Baso # (Auto) 0.02 Immature Gran # (Auto) 0.02 Sodium 135 L Potassium 3.4 L Chloride 108 H Carbon Dioxide 20 L Anion Gap 7 BUN 13 Creatinine 0.48 L Est Cr Clr Drug Dosing 167.6 Est GFR ( Amer) 146.3 Est GFR (Non-Af Amer) 126.2 BUN/Creatinine Ratio 27.1 H Glucose 89 Calcium 8.6 Total Bilirubin 0.3 AST 9 L ALT 6 L Alkaline Phosphatase 95 Lactate Dehydrogenase 109 Total Protein 5.9 L Albumin 3.2 L Globulin 2.7 Albumin/Globulin Ratio 1.2 Urine Color Urine Appearance Urine pH Ur Specific [place] Urine Protein Urine Glucose (UA) Urine Ketones Urine Blood Urine Nitrite Urine Bilirubin Urine Urobilinogen Ur Leukocyte Esterase Urine WBC (Auto) Urine RBC (Auto) U Hyaline Cast (Auto) U Epithel Cells (Auto) Urine Bacteria (Auto) Ur Random Creatinine U Random Total Protein Protein/Creatinin Ratio SARS-CoV-2, RNA, NAAT 04/24/22 04/24/22 04/24/22 19:26 19:29 20:37 WBC RBC Hgb Hct MCV MCH MCHC RDW Std Deviation RDW Coeff of Jeremy Plt Count MPV Immature Gran % (Auto) Neut % (Auto) Lymph % (Auto) [place] % (Auto) Eos % (Auto) Baso % (Auto) Neut # (Auto) Lymph # (Auto) [place] # (Auto) Eos # (Auto) Baso # (Auto) Immature Gran # (Auto) Sodium Potassium Chloride Carbon Dioxide Anion Gap BUN Creatinine Est Cr Clr Drug Dosing Est GFR ( Amer) Est GFR (Non-Af Amer) BUN/Creatinine Ratio Glucose Calcium Total Bilirubin AST ALT Alkaline Phosphatase Lactate Dehydrogenase Total Protein Albumin Globulin Albumin/Globulin Ratio Urine Color Yellow Urine Appearance Clear Urine pH 6.0 Ur Specific [place] 1.014 Urine Protein Negative Urine Glucose (UA) Negative Urine Ketones Negative Urine Blood Trace H Urine Nitrite Negative Urine Bilirubin Negative Urine Urobilinogen Negative Ur Leukocyte Esterase Negative Urine WBC (Auto) 1-5 Urine RBC (Auto) 0-4 U Hyaline Cast (Auto) 1-5 U Epithel Cells (Auto) 10-20 H Urine Bacteria (Auto) Negative Ur Random Creatinine 69.9 U Random Total Protein 12.4 H Protein/Creatinin Ratio 0.2 SARS-CoV-2, RNA, NAAT NEGATIVE 04/25/22 04/26/22 06:08 06:04 WBC 13.48 H RBC 4.29 Hgb 10.0 L 9.8 L Hct 31.6 L 31.4 L MCV 73.7 L MCH 23.3 L MCHC 31.6 L RDW Std Deviation 44.4 RDW Coeff of Jeremy 16.5 H Plt Count 196 MPV 11.0 H Immature Gran % (Auto) Neut % (Auto) Lymph % (Auto) [place] % (Auto) Eos % (Auto) Baso % (Auto) Neut # (Auto) Lymph # (Auto) [place] # (Auto) Eos # (Auto) Baso # (Auto) Immature Gran # (Auto) Sodium Potassium Chloride Carbon Dioxide Anion Gap BUN Creatinine Est Cr Clr Drug Dosing Est GFR ( Amer) Est GFR (Non-Af Amer) BUN/Creatinine Ratio Glucose Calcium Total Bilirubin AST ALT Alkaline Phosphatase Lactate Dehydrogenase Total Protein Albumin Globulin Albumin/Globulin Ratio Urine Color Urine Appearance Urine pH Ur Specific [place] Urine Protein Urine Glucose (UA) Urine Ketones Urine Blood Urine Nitrite Urine Bilirubin Urine Urobilinogen Ur Leukocyte Esterase Urine WBC (Auto) Urine RBC (Auto) U Hyaline Cast (Auto) U Epithel Cells (Auto) Urine Bacteria (Auto) Ur Random Creatinine U Random Total Protein Protein/Creatinin Ratio SARS-CoV-2, RNA, NAAT
== END 2022-04-26 13:23 | disposition home or self-care (01) | DRG 807 ==
LOC: OPB 16:57 → 4S1 16:58 → 4E2 04-25 02:20

== ENCOUNTER 2025-11-09 11:34 | Inpatient (IN) ==
[2025-11-09] MEDS ORDERED: CALCIUM CARBONATE 500 MG CHEWABLE TAB PO PRN (11:55)
[2025-11-09] MEDS ORDERED: LIDOCAINE 1% LOCAL 20 ML VIAL INFIL PRN (11:55)
[2025-11-09] MEDS ORDERED: OXYTOCIN 30 UNITS/NSS 30 UNITS/500 ML BAG IV PRN ×2 (11:55→23:26)
[2025-11-09] MEDS ORDERED: SODIUM CHLORIDE 0.9% 100 ML IV PRN (12:18)
[2025-11-09 12:41] LABS: Hematocrit (blood only) 35.1 % (37.0-47.0); Hemoglobin 11.9 g/dL (12.0-16.0); Mean Corpuscular Hemoglobin 27.5 pg (25.0-34.0); Mean Corpuscular Volume 81.1 fL (80.0-100.0); Platelet Count 209 K/uL (130-400); RDW Standard Deviation 41.7 fL (36.4-46.3); Red Blood Count 4.33 M/uL (4.20-5.40); White Blood Count 7.81 K/ul (4.8-10.8)
[2025-11-09 12:50] LABS: Alanine Aminotransferase 7.0 U/L (7-52); Albumin Globulin Ratio 0.9 (0.9-2); Albumin Level 3.0 gm/dl (3.4-5.0); Alkaline Phosphatase 110.0 U/L (34-104); Anion Gap 7.0 (3-11); Bilirubin,Total 0.3 mg/dl (0.2-1.0); Blood Urea Nitrogen 8.0 mg/dl (6-23); Calcium 8.6 mg/dl (8.6-10.3); Carbon Dioxide 21.0 mmol/L (21-32); Chloride 106.0 mmol/L (98-107); Creatinine Clr Calc Pharmacy 199.6 ml/min; Globulin 3.5 gm/dl (2.5-4.0); Glucose 103.0 mg/dl (70-99(Fasting)); Potassium 3.5 mmol/L (3.5-5.1); Sodium 134.0 mmol/L (136-145); Total Protein 6.5 gm/dl (6.0-8.3)
--- NOTE | 2025-11-09 12:58 | History & Physical Report ---
Date of Service November 09, 2025 Assessment & Plan (1) Post-term , 40-42 weeks of gestation: Plan: 40-year-old -0-2-4 at 41 weeks and 2 days of gestation presenting today for induction of labor for postdates and oligohydramnios, Vital signs stable afebrile, GBS negative, heart rate reassuring, Plan to admit, labs, monitor, oxytocin per protocol, epidural when patient desires, All questions were answered. (2) AMA (advanced maternal age) multigravida 35+: (3) History of gestational diabetes in prior , currently : Admission and Anticipated Discharge Date Admission Date: November 09, 2025 History of Present Illness Primary Care Provider: Ayush Hess, Patient is an 40-year-old [id number] P4-0-2-4 at 41 weeks and 2 days of gestation who was in the office for NST and MONICA which was low at 3.6 cm she was sent in for induction of labor for postdates and oligohydramnios. she has no complaints, denies contractions, leakage of fluid, vaginal bleeding. She reports good movements. Her has been complicated by 1. history of GDM A1 with prior , declined Glucola testing during this , 2. AMA, no testing was done, Declined 3. obesity during , denies any other medical problems. GBS negative Allergies Allergy/AdvReac Type Severity Reaction Status Date / Time sulfamethoxazole Allergy Severe Rash Unverified 08/17/23 10:39 [From Bactrim] trimethoprim [From Bactrim] Allergy Severe Rash Unverified 08/17/23 10:39 Home Medications Medication Instructions Recorded Confirmed Type omeprazole 20 mg tablet,delayed 20 mg PO DAILY 11/09/25 11/09/25 History release vit no.95-ferrous 1 tab PO DAILY 11/09/25 11/09/25 History fumarate 28 mg-folic acid 800 mcg tablet () Patient History Medical History Eczema Surgical History Hx of cholecystectomy 2014 History of ERCP Social History Smoking Status: Never smoker Second Hand Exposure: No; Do You Dip or Chew Tobacco: No; Hx Alcohol Use: No Hx Substance Use: No Preferred Language: Italian Communication Ability: Effective 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: No Beliefs That Will Affect Care: None marital status: Single Current Living Situation: Significant Other Current Living Situation Comment: lives with children and boyfriend, 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 Ho current occupational status: unemployed 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 Other Information That Helps Us Care for You: No Feels Safe at Home: Yes Safety Concerns: Feels Safe At This Time Assistive Devices: None OB History 4 full-term 's, uncomplicated, 2 SABs [employer] History no history of STDs, no history of chlamydia, gonorrhea, herpes Review of Systems as per Subjective / HPI Physical Exam Constitutional: WD/WN, vitals as above well developed, well nourished and comfortable Gastrointestinal (Abdomen): normal bowel sounds, soft, nontender, no hepatosplenomegaly ( [place] 7 pounds) Genitourinary: normal external appearance OB Exam Abdomen: + vertex Manual OB Exam: + cervical dilation 2 cm, + cervical effacement 30% and + station -2 OB Exam Monitor Tracing: + external uterine monitor used and + category I Results & Data Vital Signs (Past 12 Hours) Vital Signs Temp Pulse Resp BP 11/09/25 12:02 92 H 11/09/25 12:02 125/79 11/09/25 11:46 36.4 C L 114 H 20 135/84 11/09/25 11:42 36.4 C L 114 H 20 135/84 Laboratory Results Lab Results 11/09/25 Range/Units 12:14 WBC 7.81 (4.8-10.8) K/ul RBC 4.33 (4.20-5.40) M/uL Hgb 11.9 L (12.0-16.0) g/dL Hct 35.1 L (37.0-47.0) % MCV 81.1 (80.0-100.0) fL MCH 27.5 (25.0-34.0) pg MCHC 33.9 (32.0-36.0) g/dL RDW Std Deviation 41.7 (36.4-46.3) fL RDW Coeff of Jeremy 14.2 (11.5-14.5) % Plt Count 209 (130-400) K/uL MPV 11.6 (9.4-12.4) fL Sodium 134 L (136-145) mmol/L Potassium 3.5 (3.5-5.1) mmol/L Chloride 106 (98-107) mmol/L Carbon Dioxide 21 (21-32) mmol/L Anion Gap 7 (3-11) BUN 8 (6-23) mg/dl Creatinine 0.39 L (0.6-1.2) mg/dl Est Cr Clr Drug Dosing 199.6 ml/min eGFR 129.82 BUN/Creatinine Ratio 20.5 H (10-20) Glucose 103 H (70-99(Fasting)) mg/dl Calcium 8.6 (8.6-10.3) mg/dl Total Bilirubin 0.3 (0.2-1.0) mg/dl AST 11 L (13-39) U/L ALT 7 (7-52) U/L Alkaline Phosphatase 110 H (34-104) U/L Total Protein 6.5 (6.0-8.3) gm/dl Albumin 3.0 L (3.4-5.0) gm/dl Globulin 3.5 (2.5-4.0) gm/dl Albumin/Globulin Ratio 0.9 (0.9-2) Crossmatch See Detail (2) AMA (advanced maternal age) multigravida 35+ Trimester: third trimester Qualified Code(s): O09.523 - Supervision of elderly multigravida, third trimester
[2025-11-09] MEDS: OXYTOCIN 30 UNITS/NSS 30 UNITS/500 ML BAG IV PRN (13:00)
[2025-11-09] MEDS: LACTATED RINGER'S 1,000 ML IV PRN (13:05)
--- NOTE | 2025-11-09 15:11 | Anesthesiology Consultation ---
Date of Service November 09, 2025 Assessment & Plan (1) Encounter for pre-operative examination: Chart Review Chart Review: Acceptable Risk for Labor Epidural History Height/Weight Height: 5 ft 1.5 in Weight: 89.811 kg Allergies Allergy/AdvReac Type Severity Reaction Status Date / Time sulfamethoxazole Allergy Severe Rash Unverified 08/17/23 10:39 [From Bactrim] trimethoprim [From Bactrim] Allergy Severe Rash Unverified 08/17/23 10:39 Medications Home Medications Medication Instructions Recorded Confirmed Last Taken omeprazole 20 mg tablet,delayed 20 mg PO DAILY 11/09/25 11/09/25 11/09/25 08:00 release vit no.95-ferrous 1 tab PO DAILY 11/09/25 11/09/25 11/07/25 20:00 fumarate 28 mg-folic acid 800 mcg tablet () Active Medications Generic Name Dose Route Start Last Admin Trade Name Freq PRN Reason Stop Dose Admin Lactated Ringer's 1,000 mls @ 150 mls/hr 11/09/25 11:55 11/09/25 14:45 Lr IV 11/11/25 11:54 999 mls/hr .[id number] PRN Infusion L&D Protocol Protocol Oxytocin 30 units in 500 mls @ 8 mls/hr 11/09/25 12:26 11/09/25 14:45 Pitocin 30 Units/Nss IV 11/11/25 12:25 0.48 units/hr .Q24H PRN 8 mls/hr Labor Induction/Augmentation Titration Protocol 0.48 UNITS/HR Past Medical History Medical History (Updated 11/09/25 @ 15:11 by Jag Jones MD) Gestational diabetes mellitus (GDM) last was diagnosed, with this just monitoring BSG, refused glucose testing. Eczema Past Surgical History Surgical History Hx of cholecystectomy 2014 History of ERCP Social History Smoking Status: Never smoker Do You Dip or Chew Tobacco: No Hx Alcohol Use: No Hx Substance Use: No substance use type: does not use Physical Exam Vital Signs Last Vital Signs Temp 36.4 C L 11/09/25 11:46 Pulse 90 11/09/25 15:08 Resp 20 11/09/25 11:46 BP 135/76 11/09/25 15:08 Pulse Ox 98 11/09/25 15:06 Testing Laboratory Results 11/09/25 12:14 11/09/25 12:14 Blood Type O Positive 11/09/25 12:14 Antibody Screen NEGATIVE 11/09/25 12:14
[2025-11-09] MEDS: LIDOCAINE 2%/EPINEPHRINE 1:200,000 20 ML PF ONE (15:42)
[2025-11-09] MEDS: BUPIVACAINE 0.25% PF 30 ML VIAL ONE (15:42)
[2025-11-09] MEDS: fentANYL 2 MCG/ML BUPIVacaine 0.125%-NSS 100ML BAG ONE (15:43)
[2025-11-09] MEDS ORDERED: NALOXONE HCL 0.4 MG/1 ML VIAL/CARP IV PRN (15:51)
[2025-11-09] MEDS ORDERED: ONDANSETRON INJ 2 MG/ML 2 ML VIAL IV PRN (15:51)
[2025-11-09] MEDS ORDERED: fentANYL 2 MCG/ML BUPIVacaine 0.125%-NSS 100ML BAG EPI PRN (15:51)
[2025-11-09] MEDS ORDERED: NALOXONE HCL 1 MG in SODIUM CHLORIDE 0.9% 1,000 ML IV PRN (15:51)
[2025-11-09] MEDS ORDERED: ROPIVACAINE 0.5% PF 5 MG/ML 20 ML VIAL EPI PRN (15:51)
[2025-11-09] MEDS ORDERED: SODIUM CHLORIDE 0.9% PF INJ 10 ML VIAL EPI PRN (15:51)
[2025-11-09] MEDS ORDERED: LIDOCAINE 2% MPF LOCAL 5 ML VIAL EPI PRN (15:51)
[2025-11-09] MEDS ORDERED: BUPIVACAINE 0.25% PF 30 ML VIAL EPI PRN (15:51)
[2025-11-09] MEDS: SODIUM CHLORIDE 0.9% PF INJ 10 ML VIAL ONE (17:05)
--- NOTE | 2025-11-09 18:09 | Obstetrical Progress Note ---
Date of Service November 09, 2025 Assessment & Plan Admission and Anticipated Discharge Date Admission Date: November 09, 2025 Subjective Late entry from 17:40 Patient He has received epidural, comfortable now. Oxytocin is at 14 milliunits/min, contractions are every 3 to 5 minutes, heart rate category 1, Vaginal exam, patient's bed is soaked with clear fluids, positive for nitrazine paper test, this was noted around 1715 p.m., Cervix is 3 to 4 cm, 50%, -2 attempt AROM but unable, most likely SROM'ed before continue to monitor closely, Results & Data Vital Signs (Past 12 Hours) Vital Signs Temp Pulse Resp BP Pulse Ox 11/09/25 18:06 99 11/09/25 18:06 88 11/09/25 18:01 100 11/09/25 18:01 96 H 11/09/25 17:57 81 11/09/25 17:57 123/63 11/09/25 17:56 100 11/09/25 17:56 83 11/09/25 17:51 100 11/09/25 17:51 92 H 11/09/25 17:46 100 11/09/25 17:46 97 H 11/09/25 17:41 100 11/09/25 17:41 90 11/09/25 17:36 100 11/09/25 17:36 85 11/09/25 17:31 100 11/09/25 17:31 102 H 11/09/25 17:26 97 11/09/25 17:26 97 H 11/09/25 17:26 122/73 11/09/25 17:21 100 11/09/25 17:21 95 H 11/09/25 17:16 99 11/09/25 17:16 111 H 11/09/25 17:12 104 H 11/09/25 17:12 113/76 11/09/25 17:11 99 11/09/25 17:11 102 H 11/09/25 17:06 99 11/09/25 17:06 85 11/09/25 17:01 100 11/09/25 17:01 88 11/09/25 16:56 96 11/09/25 16:56 88 11/09/25 16:56 114/63 11/09/25 16:51 98 11/09/25 16:51 85 11/09/25 16:46 98 11/09/25 16:46 84 11/09/25 16:41 97 11/09/25 16:41 81 11/09/25 16:41 123/66 11/09/25 16:36 98 11/09/25 16:36 91 H 11/09/25 16:31 98 11/09/25 16:31 102 H 11/09/25 16:26 99 11/09/25 16:26 112 H 11/09/25 16:26 92 H 11/09/25 16:26 114/65 11/09/25 16:21 97 11/09/25 16:21 98 H 11/09/25 16:21 86 11/09/25 16:21 118/67 11/09/25 16:17 97 H 11/09/25 16:17 123/64 11/09/25 16:16 98 11/09/25 16:16 87 11/09/25 16:12 102 H 11/09/25 16:12 133/75 11/09/25 16:11 97 11/09/25 16:11 101 H 11/09/25 16:06 98 11/09/25 16:06 114 H 11/09/25 16:06 113/73 11/09/25 16:01 98 11/09/25 16:01 110 H 11/09/25 16:01 129/67 11/09/25 15:56 99 11/09/25 15:56 141 H 11/09/25 15:55 136 H 11/09/25 15:55 120/62 11/09/25 15:53 114 H 11/09/25 15:53 130/66 11/09/25 15:52 129 H 11/09/25 15:52 135/63 11/09/25 15:51 98 11/09/25 15:51 133 H 11/09/25 15:50 79 11/09/25 15:50 130/70 11/09/25 15:47 65 11/09/25 15:47 77/43 L 11/09/25 15:46 99 11/09/25 15:46 89 11/09/25 15:46 115 H 11/09/25 15:46 81/42 L 11/09/25 15:43 104 H 11/09/25 15:43 132/75 12/15/25 15:42 114 H 11/09/25 15:42 129/71 11/09/25 15:41 97 11/09/25 15:41 120 H 11/09/25 15:39 112 H 11/09/25 15:39 146/91 H 11/09/25 15:37 113 H 11/09/25 15:37 142/93 H 11/09/25 15:36 97 11/09/25 15:36 99 H 11/09/25 15:35 99 H 11/09/25 15:35 143/94 H 11/09/25 15:31 98 11/09/25 15:31 89 11/09/25 15:26 98 11/09/25 15:26 100 H 11/09/25 15:21 98 11/09/25 15:21 87 11/09/25 15:16 98 11/09/25 15:16 79 11/09/25 15:11 98 11/09/25 15:11 82 11/09/25 15:08 90 11/09/25 15:08 135/76 11/09/25 15:06 98 11/09/25 15:06 81 11/09/25 15:01 99 11/09/25 15:01 78 11/09/25 14:07 82 11/09/25 14:07 152/93 H 11/09/25 13:07 88 11/09/25 13:07 130/81 11/09/25 12:02 92 H 11/09/25 12:02 125/79 11/09/25 11:46 36.4 C L 114 H 20 135/84 11/09/25 11:42 36.4 C L 114 H 20 135/84
--- NOTE | 2025-11-09 21:01 | Obstetrical Progress Note ---
Date of Service November 09, 2025 Assessment & Plan Admission and Anticipated Discharge Date Admission Date: November 09, 2025 Subjective Patient is reevaluated Oxytocin is at 20 miu/min Does not feel contractions nor pain/ pressure VSS Afebrile FHR categ I, unable to trce on her side VE; unchanged, 3-4 cm/ 50%/ -2, IUPC and fse were placed without difficulty Continue to monitor closely Increase Oxytocin per IUPC readings Results & Data Vital Signs (Past 12 Hours) Vital Signs Temp Pulse Resp BP Pulse Ox O2 Del Method 11/09/25 20:57 69 11/09/25 20:57 129/62 11/09/25 20:56 99 11/09/25 20:56 93 H 11/09/25 20:51 98 11/09/25 20:51 90 11/09/25 20:46 98 11/09/25 20:46 97 H 11/09/25 20:42 97 H 11/09/25 20:42 127/81 11/09/25 20:41 98 11/09/25 20:41 98 H 11/09/25 20:36 97 11/09/25 20:36 87 11/09/25 20:31 98 11/09/25 20:31 114 H 11/09/25 20:30 18 11/09/25 20:30 18 11/09/25 20:27 83 11/09/25 20:27 132/81 11/09/25 20:26 97 11/09/25 20:26 84 11/09/25 20:21 97 11/09/25 20:21 100 H 11/09/25 20:16 97 11/09/25 20:16 88 11/09/25 20:12 88 11/09/25 20:12 124/71 11/09/25 20:11 97 11/09/25 20:11 74 11/09/25 20:06 97 11/09/25 20:06 90 11/09/25 20:01 96 11/09/25 20:01 85 11/09/25 20:00 18 11/09/25 20:00 18 11/09/25 19:57 73 11/09/25 19:57 115/70 11/09/25 19:56 97 11/09/25 19:56 77 11/09/25 19:51 96 11/09/25 19:51 81 11/09/25 19:46 97 11/09/25 19:46 74 11/09/25 19:42 82 11/09/25 19:42 135/72 11/09/25 19:41 97 11/09/25 19:41 81 11/09/25 19:36 98 11/09/25 19:36 83 11/09/25 19:31 99 11/09/25 19:31 79 11/09/25 19:30 18 11/09/25 19:30 18 11/09/25 19:26 99 11/09/25 19:26 89 11/09/25 19:21 99 11/09/25 19:21 78 11/09/25 19:16 99 11/09/25 19:16 100 H 11/09/25 19:12 18 11/09/25 19:12 36.5 C 18 11/09/25 19:12 80 11/09/25 19:12 121/84 11/09/25 19:11 100 11/09/25 19:11 89 11/09/25 19:09 36.5 C 18 11/09/25 19:09 Room Air 11/09/25 19:06 99 11/09/25 19:06 90 11/09/25 19:01 98 11/09/25 19:01 88 11/09/25 18:58 78 11/09/25 18:58 130/71 11/09/25 18:56 98 11/09/25 18:56 85 11/09/25 18:51 99 11/09/25 18:51 84 11/09/25 18:46 99 11/09/25 18:46 75 11/09/25 18:43 76 11/09/25 18:43 119/71 11/09/25 18:41 98 11/09/25 18:41 86 11/09/25 18:36 98 11/09/25 18:36 95 H 11/09/25 18:31 98 11/09/25 18:31 86 11/09/25 18:27 80 11/09/25 18:27 110/60 11/09/25 18:26 98 11/09/25 18:26 84 11/09/25 18:21 100 11/09/25 18:21 93 H 11/09/25 18:16 100 11/09/25 18:16 96 H 11/09/25 18:11 100 11/09/25 18:11 83 11/09/25 18:06 99 11/09/25 18:06 88 11/09/25 18:01 100 11/09/25 18:01 96 H 11/09/25 17:57 81 11/09/25 17:57 123/63 11/09/25 17:56 100 11/09/25 17:56 83 11/09/25 17:51 100 11/09/25 17:51 92 H 11/09/25 17:46 100 11/09/25 17:46 97 H 11/09/25 17:41 100 11/09/25 17:41 90 11/09/25 17:36 100 11/09/25 17:36 85 11/09/25 17:31 100 11/09/25 17:31 102 H 11/09/25 17:26 97 11/09/25 17:26 97 H 11/09/25 17:26 122/73 11/09/25 17:21 100 11/09/25 17:21 95 H 11/09/25 17:16 99 11/09/25 17:16 111 H 11/09/25 17:12 104 H 11/09/25 17:12 113/76 11/09/25 17:11 99 11/09/25 17:11 102 H 11/09/25 17:06 99 11/09/25 17:06 85 11/09/25 17:01 100 11/09/25 17:01 88 11/09/25 16:56 96 11/09/25 16:56 88 11/09/25 16:56 114/63 11/09/25 16:51 98 11/09/25 16:51 85 11/09/25 16:46 98 11/09/25 16:46 84 11/09/25 16:41 97 11/09/25 16:41 81 11/09/25 16:41 123/66 11/09/25 16:36 98 11/09/25 16:36 91 H 11/09/25 16:31 98 11/09/25 16:31 102 H 11/09/25 16:26 99 11/09/25 16:26 112 H 11/09/25 16:26 92 H 11/09/25 16:26 114/65 11/09/25 16:21 97 11/09/25 16:21 98 H 11/09/25 16:21 86 11/09/25 16:21 118/67 11/09/25 16:17 97 H 11/09/25 16:17 123/64 11/09/25 16:16 98 11/09/25 16:16 87 11/09/25 16:12 102 H 11/09/25 16:12 133/75 11/09/25 16:11 97 11/09/25 16:11 101 H 11/09/25 16:06 98 11/09/25 16:06 114 H 11/09/25 16:06 113/73 11/09/25 16:01 98 11/09/25 16:01 110 H 11/09/25 16:01 129/67 11/09/25 15:56 99 11/09/25 15:56 141 H 11/09/25 15:55 136 H 11/09/25 15:55 120/62 11/09/25 15:53 114 H 11/09/25 15:53 130/66 11/09/25 15:52 129 H 11/09/25 15:52 135/63 11/09/25 15:51 98 11/09/25 15:51 133 H 11/09/25 15:50 79 11/09/25 15:50 130/70 11/09/25 15:47 65 11/09/25 15:47 77/43 L 11/09/25 15:46 99 11/09/25 15:46 89 11/09/25 15:46 115 H 11/09/25 15:46 81/42 L 11/09/25 15:43 104 H 11/09/25 15:43 132/75 11/09/25 15:42 114 H 11/09/25 15:42 129/71 11/09/25 15:41 97 11/09/25 15:41 120 H 11/09/25 15:39 112 H 11/09/25 15:39 146/91 H 11/09/25 15:37 113 H 11/09/25 15:37 142/93 H 11/09/25 15:36 97 11/09/25 15:36 99 H 11/09/25 15:35 99 H 11/09/25 15:35 143/94 H 11/09/25 15:31 98 11/09/25 15:31 89 11/09/25 15:26 98 11/09/25 15:26 100 H 11/09/25 15:21 98 11/09/25 15:21 87 11/09/25 15:16 98 11/09/25 15:16 79 11/09/25 15:11 98 11/09/25 15:11 82 11/09/25 15:08 90 11/09/25 15:08 135/76 11/09/25 15:06 98 11/09/25 15:06 81 11/09/25 15:01 99 11/09/25 15:01 78 11/09/25 14:07 82 11/09/25 14:07 152/93 H 11/09/25 13:07 88 11/09/25 13:07 130/81 11/09/25 12:02 92 H 11/09/25 12:02 125/79 11/09/25 11:46 36.4 C L 114 H 20 135/84 11/09/25 11:42 36.4 C L 114 H 20 135/84
[2025-11-09] MEDS ORDERED: HYDROCORTISONE ACETATE 25 MG SUPP PR PRN (23:26)
--- NOTE | 2025-11-09 23:29 | Delivery Summary ---
Vaginal Delivery Summary Date of Service November 09, 2025 Vaginal Delivery Summary Patient was found to be fully dilated and desired to push. She pushed with 2 contractions only min and delivered the head and then shoulders with minimal traction. Nucal cordx1 was reduced easily. The baby was handed off to the mother. The cord was clampedx2 and cut at 1 minute. The vagina and perineum were checked and found to be intact, no lacerations found. The placenta was delivered spontaneously as intact and complete. The uterus was explored and found to be empty. QBL was 30 ml. The fundus was firm. The baby was a viable male , Apgars 8/9, the weight is pending The mother and the baby tolerated the procedure well. No complications happened and I was present during whole procedure.
[2025-11-10] MEDS: BUPIVACAINE 0.25% PF 30 ML VIAL EPI STA (01:04)
[2025-11-10] MEDS: LIDOCAINE 2%/EPINEPHRINE 1:200,000 20 ML PF EPI STA (01:04)
[2025-11-10] MEDS: MEASLES, MUMPS & RUBELLA VIRUS VACCINE (MMR) 0.5ML VIAL SQ ONE (01:04)
[2025-11-10] MEDS: SODIUM CHLORIDE 0.9% PF INJ 10 ML VIAL EPI STA (01:04)
[2025-11-10] MEDS: LACTATED RINGER'S 1,000 ML IV ONE (01:05)
[2025-11-10] MEDS: ACETAMINOPHEN 500 MG TAB PO PRN (01:30)
[2025-11-10] MEDS: DIPHTHER/TETAN/PERTUS Vaccine (Tdap, Adol/Adult) 0.5mL IM ONE (03:09)
[2025-11-10] MEDS: IBUPROFEN 600 MG TAB PO PRN (03:10)
--- NOTE | 2025-11-10 04:57 | Anesthesia Procedure Note ---
Date of Service November 10, 2025 Anesthesia Post Epidural Note Vital Signs Vital Signs: Temp Pulse Resp BP Pulse Ox O2 Del Method 36.8 C 69 18 120/76 97 Room Air 11/10/25 03:05 11/10/25 03:05 11/10/25 03:05 11/10/25 03:05 11/10/25 03:05 11/10/25 03:05 Pain Intensity Bilateral Abdomen: Pain Intensity: 5 Notes Mental Status: alert / awake / arousable and participated in evaluation Nausea / Vomiting: adequately controlled Pain: adequately controlled Airway Patency, RR, SpO2: stable & adequate BP & HR: stable & adequate Hydration State: stable & adequate Neuraxial Anesthesia: was administered and sensory block is resolving Anesthetic Complications: no major complications apparent Epidural: Removed without complications and With tip intact
[2025-11-10 07:19] LABS: Hematocrit (blood only) 33.0 % (37.0-47.0); Hemoglobin 11.2 g/dL (12.0-16.0); Mean Corpuscular Hemoglobin 27.6 pg (25.0-34.0); Mean Corpuscular Volume 81.3 fL (80.0-100.0); Platelet Count 201 K/uL (130-400); RDW Standard Deviation 41.8 fL (36.4-46.3); Red Blood Count 4.06 M/uL (4.20-5.40); White Blood Count 13.74 K/ul (4.8-10.8)
[2025-11-10] MEDS: DOCUSATE SODIUM 100 MG CAP PO SCH (07:44)
[2025-11-10] MEDS: PRENATAL VITAMIN 1 TAB PO SCH (07:44)
[2025-11-10] MEDS: FERROUS SULFATE 325 MG TAB PO SCH (07:44)
[2025-11-10] MEDS: BENZOCAINE 20% SPRY 85 APPLN/85 GM CAN EXT PRN (07:44)
[2025-11-10] MEDS: ACETAMINOPHEN 325 MG TAB PO PRN (15:38)
[2025-11-10 17:19] VITALS: RESP 18
[2025-11-11 00:40] VITALS: TEMP 97.5; O2SAT 97
[2025-11-11 07:02] LABS: Hematocrit (blood only) 31.8 % (37.0-47.0); Hemoglobin 10.6 g/dL (12.0-16.0)
[2025-11-11 08:20] VITALS: BP 128/81
--- NOTE | 2025-11-11 09:25 | Obstetrical Progress Note ---
Date of Service November 11, 2025 Assessment & Plan Admission and Anticipated Discharge Date Admission Date: November 09, 2025 Subjective Patient is seen and examined. She feels well, no complaints. Ambulating without dizziness Voiding without difficulty Tolerating regular diet with out N&V Bleeding is minimal No fever/ chills/ CP/ SOB/ N&V/ Leg pain Breast feeding without problems Vital Signs Temp Pulse Pulse Resp BP Pulse Ox O2 Del Method 11/11/25 07:39 Room Air 11/11/25 07:39 36.4 C L 73 18 128/81 97 Room Air 11/10/25 23:50 36.4 C L 78 18 107/70 97 Room Air 11/10/25 20:00 36.3 C L 87 18 110/77 98 Room Air 11/10/25 15:30 36.7 C 80 18 99/61 L 98 Room Air 11/10/25 11:08 36.5 C 86 20 135/80 Lab Results 11/09/25 11/10/25 11/11/25 Range/Units 12:14 06:56 06:37 WBC 7.81 13.74 H (4.8-10.8) K/ul RBC 4.33 4.06 L (4.20-5.40) M/uL Hgb 11.9 L 11.2 L 10.6 L (12.0-16.0) g/dL Hct 35.1 L 33.0 L 31.8 L (37.0-47.0) % MCV 81.1 81.3 (80.0-100.0) fL MCH 27.5 27.6 (25.0-34.0) pg MCHC 33.9 33.9 (32.0-36.0) g/dL RDW Std Deviation 41.7 41.8 (36.4-46.3) fL RDW Coeff of Jeremy 14.2 14.4 (11.5-14.5) % Plt Count 209 201 (130-400) K/uL MPV 11.6 11.6 (9.4-12.4) fL Sodium 134 L (136-145) mmol/L Potassium 3.5 (3.5-5.1) mmol/L Chloride 106 (98-107) mmol/L Carbon Dioxide 21 (21-32) mmol/L Anion Gap 7 (3-11) BUN 8 (6-23) mg/dl Creatinine 0.39 L (0.6-1.2) mg/dl Est Cr Clr Drug Dosing 199.6 ml/min eGFR 129.82 BUN/Creatinine Ratio 20.5 H (10-20) Glucose 103 H (70-99(Fasting)) mg/dl Calcium 8.6 (8.6-10.3) mg/dl Total Bilirubin 0.3 (0.2-1.0) mg/dl AST 11 L (13-39) U/L ALT 7 (7-52) U/L Alkaline Phosphatase 110 H (34-104) U/L Total Protein 6.5 (6.0-8.3) gm/dl Albumin 3.0 L (3.4-5.0) gm/dl Globulin 3.5 (2.5-4.0) gm/dl Albumin/Globulin Ratio 0.9 (0.9-2) Treponema pallidum Ab Negative (Negative) Blood Type O Positive Antibody Screen NEGATIVE Crossmatch See Detail PE: General: Alert, orientedx3, NAD Abd: soft, NT, fundus firm, below Umbilicus Perineum intact, Lochia rubra minimal Ext; NT, no edema AP: 40 yo s/p , ppd# 2 VSS Afebrile doing well Continue routine care All questions were answered D/C home , f/u in office Results & Data Vital Signs (Past 12 Hours) Vital Signs Temp Pulse Resp BP Pulse Ox O2 Del Method 11/11/25 07:39 Room Air 11/11/25 07:39 36.4 C L 73 18 128/81 97 Room Air 11/10/25 23:50 36.4 C L 78 18 107/70 97 Room Air
[2025-11-11 10:57] VITALS: PULSE 86
== END 2025-11-11 13:15 | disposition home health service (06) | DRG 806 ==
LOC: OPB 11:34 → 4S1 11:36 → 4E2 11-10 03:43